=== PATIENT | female | born 1960 | race African-American/Black ===

== ENCOUNTER 2018-12-05 15:51 | Emergency (ER) | payer MEDICARE, MEDICAID ==
[2018-12-05] MEDS ORDERED: HYDROcodone/Acetaminophen 5/325 mg Tablet ONE (17:51)
== END 2018-12-05 17:58 | disposition home or self-care (01) ==
LOC: ERS 15:51
DX: G89.29 Other chronic pain (principal); M54.5 Low back pain; E78.5 Hyperlipidemia, unspecified; I10 Essential (primary) hypertension; J44.9 Chronic obstructive pulmonary disease, unspecified; F31.9 Bipolar disorder, unspecified; F20.9 Schizophrenia, unspecified; F17.210 Nicotine dependence, cigarettes, uncomplicated; Z79.899 Other long term (current) drug therapy
CPT/HCPCS: 99281

== ENCOUNTER 2019-04-12 11:25 | Emergency (ER) | payer MEDICARE, MEDICAID ==
[2019-04-12 12:08] LABS: #Basophils 0.1 thou/uL (0.0-0.2); #Eosinphils 0.2 thou/uL (0.0-0.7); #Lymphocytes 1.3 thou/uL (1.20-3.40); #Monocytes 0.4 thou/uL (0.11-0.59); #Neutrophils 3.3 thou/uL (1.40-6.50); %Eosinophils 4.1 % (0.0-10.0); %Lymphocytes 24.1 % (21.0-51.0); %Neutrophils 62.8 % (42.0-75.0); Hemoglobin 13.1 g/dL (12.0-16.0); Mean Corpuscular HGB CONC 33.7 g/dL (32.0-36.0); Mean Corpuscular Hemoglobin 28.1 pg (27.0-31.0); Mean Corpuscular Volume 83.3 fL (78.0-98.0); Mean Platelet Volume 9.7 fL (7.4-10.4); Platelet Count 251 thou/uL (130-400); RBC Distribution Width 14.2 % (11.5-14.5); Red Blood Cell (RBC) Count 4.68 mill/uL (4.20-5.40); White Blood Cell (WBC) Count 5.3 thou/uL (4.8-10.8)
--- NOTE | 2019-04-12 12:11 | RAD ---
Chest AP view INDICATION: Chest pain and shortness of breath COMPARISON: None FINDINGS: Lungs:The lungs are clear Cardiac silhouette:The cardiomediastinal silhouette appears within normal limits. Pulmonary vasculature:Normal Pleural spaces:No pleural effusion or pneumothorax is demonstrated. Upper abdomen:No abnormality seen. Osseous structures: No acute osseous abnormality. Additional findings:None. IMPRESSION: No acute cardiopulmonary abnormality.
[2019-04-12 12:35] LABS: ALT (SGPT) 216 U/L (8-55); AST (SGOT) 63 U/L (5-34); Albumin 4.4 g/dL (3.5-5.0); Alkaline Phosphatase 343 U/L (40-110); Anion Gap 12 mmol/L (10-20); BUN (Urea Nitrogen) 13 mg/dL (9.8-20.1); Bilirubin, Total 0.4 mg/dL (0.2-1.2); Calc. Creatinine Clearance 0 mL/min (70-130); Calcium 9.6 mg/dL (7.8-10.44); Carbon Dioxide 29 mmol/L (22-29); Chloride 102 mmol/L (98-107); Estimated GFR-MDRD 81; Globulin 3.4 g/dL (2.4-3.5); Glucose 97 mg/dL (70-105); Lipase 88 U/L (8-78); Potassium 4.1 mmol/L (3.5-5.1); Protein, Total 7.8 g/dL (6.0-8.3); Sodium 139 mmol/L (136-145)
[2019-04-12] MEDS ORDERED: Dexamethasone 10 MG/ML VIAL ONE (13:09)
== END 2019-04-12 13:24 | disposition home or self-care (01) ==
LOC: ERS 11:25
DX: R07.89 Other chest pain (principal); R05 Cough; E78.5 Hyperlipidemia, unspecified; E78.00 Pure hypercholesterolemia, unspecified; I10 Essential (primary) hypertension; J44.9 Chronic obstructive pulmonary disease, unspecified; F31.9 Bipolar disorder, unspecified; F20.9 Schizophrenia, unspecified; F17.210 Nicotine dependence, cigarettes, uncomplicated; Z79.899 Other long term (current) drug therapy
CPT/HCPCS: 71045; 80053; 83690; 84484; 85025; 85379; 87804; 93005; 96374; J1100

== ENCOUNTER 2021-03-25 14:48 | Outpatient (CLI) | payer MEDICARE, MEDICAID ==
[2021-03-25 16:15] LABS: Hemoglobin 12.4 g/dL (12.0-15.5); Mean Corpuscular HGB CONC 31.7 g/dL (32.0-36.0); Mean Corpuscular Hemoglobin 27.1 pg (27.0-33.0); Mean Corpuscular Volume 85.4 fl (81.6-98.3); Mean Platelet Volume 11.4 fl (7.4-10.4); Platelet Count 382 10x3/uL (150-450); RBC Distribution Width 15.8 % (11.5-14.5); Red Blood Cell (RBC) Count 4.58 10x6/uL (3.90-5.03); White Blood Cell (WBC) Count 5.9 10x3/uL (3.5-10.5)
[2021-03-25 17:37] LABS: Anion Gap 12 mmol/L (10-20); BUN (Urea Nitrogen) 18 mg/dL (9.8-20.1); Calc. Creatinine Clearance 0 mL/min (70-130); Calcium 8.9 mg/dL (7.8-10.44); Carbon Dioxide 25 mmol/L (23-31); Chloride 108 mmol/L (98-107); Glucose 64 mg/dL (80-115); Potassium 4.2 mmol/L (3.5-5.1); Sodium 141 mmol/L (136-145)
[2021-03-26 21:08] LABS: SARS-CoV-2 PCR by NAA Not Detected (NotDetected)
== END 2021-03-25 14:49 | disposition home or self-care (01) ==
LOC: LABBT 14:48
PROVIDERS: ATTEND Neurological Surgery
DX: Z01.818 Encounter for other preprocedural examination (principal); M48.062 Spinal stenosis, lumbar region with neurogenic claudication; Z20.822 Contact with and (suspected) exposure to COVID-19
CPT/HCPCS: 80048; 85027; 93005; U0003; U0005; 93010

== ENCOUNTER 2021-03-30 07:57 | Inpatient (IN) | payer MEDICARE, MEDICAID ==
[2021-03-24 10:06] VITALS: BMI 27.4
[2021-03-30] MEDS ORDERED: ceFAZolin Sodium (SDC) 2 GM/100 ML BAG ONE (09:29)
[2021-03-30] MEDS ORDERED: Fentanyl 100 MCG/2 ML VIAL ONE ×2 (09:40→14:41)
[2021-03-30] MEDS ORDERED: Fentanyl 250 MCG/5 ML VIAL ONE (11:10)
[2021-03-30] MEDS ORDERED: Neomycin-Polymyxin 1 ML AMP ONE (11:39)
[2021-03-30] MEDS ORDERED: Glycopyrrolate 0.2 MG/ML 5 ML SYRINGE ONE (12:15)
[2021-03-30] MEDS ORDERED: PHENYLEPHRINE-NS 100 MCG/ML 10 ML SYRINGE ONE (12:15)
[2021-03-30] MEDS ORDERED: Lidocaine 1% PF 5 ML VIAL ONE (12:15)
[2021-03-30] MEDS ORDERED: Rocuronium Bromide 10 MG/ML (10ML VIAL) ONE (12:15)
[2021-03-30] MEDS ORDERED: PROPOFOL 200 MG/20 ML VIAL ONE (12:15)
[2021-03-30] MEDS ORDERED: ePHEDrine 50 MG/ML VIAL ONE (12:15)
[2021-03-30] MEDS ORDERED: Dexamethasone 20 MG/5 ML VIAL ONE (12:15)
[2021-03-30] MEDS ORDERED: HYDROmorphone 0.5 MG/0.5 ML SYRINGE ONE ×2 (14:07→14:29)
[2021-03-30] MEDS ORDERED: Ketorolac Tromethamine 30 MG/ML VIAL ONE (14:07)
[2021-03-30] MEDS ORDERED: Ondansetron HCl/PF 4 MG/2 ML Vial IVP PRN (14:08)
[2021-03-30] MEDS ORDERED: Promethazine HCl 25 MG/ML VIAL IVPB PRN (14:08)
[2021-03-30] MEDS ORDERED: Promethazine HCl 25 MG/ML VIAL IM PRN ×2 (14:08→16:45)
[2021-03-30] MEDS ORDERED: Ketorolac Tromethamine 30 MG/ML VIAL IVP PRN (14:08)
[2021-03-30] MEDS ORDERED: HYDROmorphone 2 MG/ML VIAL SLOW IVP PRN (14:08)
[2021-03-30] MEDS ORDERED: Albuterol Sulfate 1.25 MG/3 ML NEB ONE (15:18)
[2021-03-30] MEDS ORDERED: diphenhydrAMINE 50 MG/ML VIAL IVP PRN (16:45)
[2021-03-30] MEDS ORDERED: Milk Of Magnesia 30 ML UDCUP PO PRN (16:45)
[2021-03-30] MEDS ORDERED: Mag-Al 1200 mg/1200 mg/30 ML UDCUP PO PRN (16:45)
[2021-03-30] MEDS ORDERED: diphenhydrAMINE 25 MG CAP PO PRN (16:45)
[2021-03-30] MEDS ORDERED: Morphine 2 MG/ML VIAL SLOW IVP PRN (16:45)
[2021-03-30] MEDS ORDERED: Ondansetron PF 4 MG/2 ML Vial IM PRN (16:45)
[2021-03-30] MEDS ORDERED: Acetaminophen/Codeine 30-300mg Tablet PO PRN (16:45)
[2021-03-30] MEDS ORDERED: Promethazine 25 MG TAB PO PRN (16:45)
[2021-03-30] MEDS ORDERED: Promethazine HCl 12.5 MG SUPP PR PRN (16:45)
[2021-03-30] MEDS ORDERED: traMADol HCl 50 MG TAB PO PRN ×2 (16:45)
[2021-03-30] MEDS ORDERED: tiZANidine HCl 4 MG TAB PO PRN (16:45)
[2021-03-30] MEDS ORDERED: Albuterol Sulfate 2.5 mg/3 ml Neb NEB PRN (17:07)
[2021-03-30] MEDS ORDERED: hydrOXYzine 25 MG TAB PO PRN (17:16)
[2021-03-30] MEDS ORDERED: cloNIDine 0.1 MG TAB PO PRN (17:22)
[2021-03-30] MEDS: CEFAZOLIN 2 GM, Admixture Fee 1 EACH in Sodium Chloride 0.9% 100 ML IVPB SCH (18:36)
[2021-03-30] MEDS: Sodium Chloride 0.9% 1,000 ML IV SCH (18:36)
[2021-03-30] MEDS: Gabapentin 300 MG CAP PO SCH (19:38)
[2021-03-30] MEDS: Aripiprazole 10 MG TAB PO SCH (19:38)
[2021-03-30] MEDS: Morphine 4 MG/ML VIAL SLOW IVP PRN (19:44)
[2021-03-31] MEDS: Loratadine 10 MG TAB PO PRN (00:24)
[2021-03-31] MEDS: Morphine 4 MG/ML VIAL SLOW IVP PRN ×2 (00:24→04:42)
[2021-03-31] MEDS: CEFAZOLIN 2 GM, Admixture Fee 1 EACH in Sodium Chloride 0.9% 100 ML IVPB SCH ×3 (00:24→18:14)
[2021-03-31] MEDS: Sodium Chloride 0.9% 1,000 ML IV SCH ×2 (06:21→21:14)
[2021-03-31] MEDS ORDERED: hydrALAZINE 20 MG/ML VIAL SLOW IVP PRN (06:49)
[2021-03-31] MEDS: Mometasone 200 MCG/Formoterol 5 MCG 120 PUFF INHALER INH SCH (07:01)
[2021-03-31] MEDS: Bupropion 100 MG SR TAB PO SCH (08:20)
[2021-03-31] MEDS: Gabapentin 300 MG CAP PO SCH ×4 (08:21→21:16)
[2021-03-31] MEDS: Lisinopril 20 MG TAB PO SCH (08:22)
[2021-03-31] MEDS: Fluticasone Propionate Nasal Spray 16 gm Bottle NASAL PRN ×2 (08:23→15:23)
[2021-03-31] MEDS: Multivit, Therapeutic 1 TAB PO SCH (08:23)
[2021-03-31] MEDS: Acetaminophen/Codeine 30-300mg Tablet PO PRN ×2 (10:34→15:30)
[2021-03-31] MEDS: Aripiprazole 10 MG TAB PO SCH (21:16)
[2021-04-01] MEDS: CEFAZOLIN 2 GM, Admixture Fee 1 EACH in Sodium Chloride 0.9% 100 ML IVPB SCH (00:21)
[2021-04-01] MEDS: Loratadine 10 MG TAB PO PRN (01:05)
[2021-04-01] MEDS: Acetaminophen/Codeine 30-300mg Tablet PO PRN ×2 (05:55→19:53)
[2021-04-01] MEDS ORDERED: Polyethylene Glycol 3350 17 GM Packet PO PRN (07:19)
[2021-04-01] MEDS: Mometasone 200 MCG/Formoterol 5 MCG 120 PUFF INHALER INH SCH (08:35)
[2021-04-01] MEDS: Gabapentin 300 MG CAP PO SCH ×4 (08:46→19:54)
[2021-04-01] MEDS: Docusate 100 MG CAP PO SCH (08:46)
[2021-04-01] MEDS: Multivit, Therapeutic 1 TAB PO SCH (08:47)
[2021-04-01] MEDS: Lisinopril 20 MG TAB PO SCH (08:48)
[2021-04-01] MEDS: Cephalexin 250 MG CAP PO SCH ×4 (08:49→19:53)
[2021-04-01] MEDS: Bupropion 100 MG SR TAB PO SCH (08:50)
[2021-04-01] MEDS: Fluticasone Propionate Nasal Spray 16 gm Bottle NASAL PRN (08:55)
[2021-04-01] MEDS: Sodium Chloride 0.9% 1,000 ML IV SCH ×2 (14:08→23:34)
[2021-04-01] MEDS: Aripiprazole 10 MG TAB PO SCH (19:54)
[2021-04-02] MEDS: Acetaminophen/Codeine 30-300mg Tablet PO PRN (03:12)
[2021-04-02] MEDS: Mometasone 200 MCG/Formoterol 5 MCG 120 PUFF INHALER INH SCH (07:31)
[2021-04-02 08:06] VITALS: TEMP 98.4
[2021-04-02] MEDS: Cephalexin 250 MG CAP PO SCH (08:18)
[2021-04-02] MEDS: Lisinopril 20 MG TAB PO SCH (08:18)
[2021-04-02] MEDS: Docusate 100 MG CAP PO SCH (08:18)
[2021-04-02] MEDS: Multivit, Therapeutic 1 TAB PO SCH (08:18)
[2021-04-02] MEDS: Fluticasone Propionate Nasal Spray 16 gm Bottle NASAL PRN (08:18)
[2021-04-02] MEDS: Gabapentin 300 MG CAP PO SCH (08:19)
[2021-04-02] MEDS: Bupropion 100 MG SR TAB PO SCH (08:19)
[2021-04-02 08:20] VITALS: BP 189/77
== END 2021-04-02 11:11 | disposition home or self-care (01) | DRG 460 ==
LOC: SDC 07:57 → ONC 14:15 → MSONC 03-31 11:07 → OBSVTOIN 03-31 15:52
PROVIDERS: ADMIT Neurological Surgery; ATTEND Neurological Surgery
PROC: 0SG1071 Fusion of 2 or more Lumbar Vertebral Joints with Autologous Tissue Substitute, Posterior Approach, Posterior Column, Open Approach (ICD-10-PCS; principal; 2021-03-30)
PROC: 01NB0ZZ Release Lumbar Nerve, Open Approach (ICD-10-PCS; 2021-03-30)
PROC: 0SP00JZ Removal of Synthetic Substitute from Lumbar Vertebral Joint, Open Approach (ICD-10-PCS; 2021-03-30)
DX: M48.062 Spinal stenosis, lumbar region with neurogenic claudication (principal); Z20.822 Contact with and (suspected) exposure to COVID-19; I10 Essential (primary) hypertension; E78.5 Hyperlipidemia, unspecified; J44.9 Chronic obstructive pulmonary disease, unspecified; D64.9 Anemia, unspecified; G89.4 Chronic pain syndrome; F17.210 Nicotine dependence, cigarettes, uncomplicated; F41.9 Anxiety disorder, unspecified; F31.9 Bipolar disorder, unspecified; K59.00 Constipation, unspecified; Z88.1 Allergy status to other antibiotic agents; Z90.710 Acquired absence of both cervix and uterus; Z90.49 Acquired absence of other specified parts of digestive tract; Z98.51 Tubal ligation status
CPT/HCPCS: 76000; 96365; 96375; 96376; C1713; G0378; J0360; J0690; J1100; J1170; J1885; J2270; J2704; J3010; J3370; J3490; J7050

== ENCOUNTER 2021-09-25 14:30 | Inpatient (IN) | payer MEDICARE, MEDICAID ==
[2021-09-29 16:11] VITALS: BMI 25.9
[2021-09-30] MEDS ORDERED: fentaNYL Citrate/PF 100 MCG/2 ML SYRINGE ONE (06:38)
[2021-09-30] MEDS ORDERED: CEFAZOLIN 2 GM VIAL ONE (07:41)
[2021-09-30] MEDS ORDERED: Sodium Chloride 0.9% 100 ML ONE (07:41)
[2021-09-30] MEDS ORDERED: Ondansetron PF 4 MG/2 ML Vial ONE (08:06)
[2021-09-30] MEDS ORDERED: Rocuronium Bromide 10 MG/ML (10ML VIAL) ONE (08:06)
[2021-09-30] MEDS ORDERED: PHENYLEPHRINE-NS 100 MCG/ML 10 ML SYRINGE ONE (08:06)
[2021-09-30] MEDS ORDERED: Lidocaine 1% PF 5 ML VIAL ONE (08:06)
[2021-09-30] MEDS ORDERED: Glycopyrrolate 0.2 MG/ML 5 ML SYRINGE ONE (08:06)
[2021-09-30] MEDS ORDERED: Dexamethasone 20 MG/5 ML VIAL ONE (08:06)
[2021-09-30] MEDS ORDERED: PROPOFOL 200 MG/20 ML VIAL ONE (08:06)
[2021-09-30] MEDS ORDERED: Fentanyl 100 MCG/2 ML VIAL ONE ×2 (09:48→10:08)
[2021-09-30] MEDS ORDERED: diphenhydrAMINE 50 MG/ML VIAL IVP PRN (10:00)
[2021-09-30] MEDS ORDERED: Ondansetron PF 4 MG/2 ML Vial IVP PRN (10:00)
[2021-09-30] MEDS ORDERED: traMADol HCl 50 MG TAB PO PRN ×2 (10:00)
[2021-09-30] MEDS ORDERED: Morphine 4 MG/ML VIAL SLOW IVP PRN (10:00)
[2021-09-30] MEDS ORDERED: Promethazine HCl 25 MG/ML VIAL IM PRN (10:00)
[2021-09-30] MEDS ORDERED: Promethazine 25 MG TAB PO PRN (10:00)
[2021-09-30] MEDS ORDERED: Morphine 2 MG/ML VIAL SLOW IVP PRN (10:00)
[2021-09-30] MEDS ORDERED: Promethazine HCl 12.5 MG SUPP PR PRN (10:00)
[2021-09-30] MEDS ORDERED: Mag-Al 1200 mg/1200 mg/30 ML UDCUP PO PRN (10:00)
[2021-09-30] MEDS ORDERED: Milk Of Magnesia 30 ML UDCUP PO PRN (10:00)
[2021-09-30] MEDS ORDERED: Cyclobenzaprine 10 MG TAB PO PRN (10:00)
[2021-09-30] MEDS ORDERED: diphenhydrAMINE 25 MG CAP PO PRN (10:00)
[2021-09-30] MEDS ORDERED: HYDROcodone/Acetaminophen 10/325 mg Tablet PO PRN (10:00)
[2021-09-30] MEDS ORDERED: Cyclobenzaprine 10 MG TAB ONE (10:13)
[2021-09-30] MEDS: HYDROcodone/Acetaminophen 10/325 mg Tablet PO PRN ×2 (12:03→17:38)
[2021-09-30] MEDS: Sodium Chloride 0.9% 1,000 ML IV SCH (12:06)
[2021-09-30] MEDS: CEFAZOLIN 2 GM in Sodium Chloride 0.9% 100 ML IVPB SCH ×2 (15:16→21:04)
[2021-10-01] MEDS: HYDROcodone/Acetaminophen 10/325 mg Tablet PO PRN ×2 (02:11→13:09)
[2021-10-01] MEDS: Sodium Chloride 0.9% 1,000 ML IV SCH ×3 (02:50→19:00)
[2021-10-01] MEDS: CEFAZOLIN 2 GM in Sodium Chloride 0.9% 100 ML IVPB SCH (05:44)
[2021-10-01] MEDS ORDERED: Chloraseptic Spray 180 ml Bottle PO PRN (08:20)
[2021-10-01] MEDS: Benzonatate 100 MG CAP PO PRN ×2 (08:42→17:58)
[2021-10-01] MEDS: Dexamethasone 4 mg/ml Vial SLOW IVP SCH ×2 (09:36→17:08)
[2021-10-01] MEDS: Gabapentin 300 MG CAP PO SCH ×2 (14:51→20:39)
[2021-10-01] MEDS: buPROPion HCl 100 MG TAB PO SCH (20:39)
[2021-10-02] MEDS: Dexamethasone 4 mg/ml Vial SLOW IVP SCH ×2 (01:56→08:55)
[2021-10-02] MEDS: HYDROcodone/Acetaminophen 10/325 mg Tablet PO PRN (05:19)
[2021-10-02] MEDS: Gabapentin 300 MG CAP PO SCH (08:51)
[2021-10-02] MEDS: buPROPion HCl 100 MG TAB PO SCH (08:52)
[2021-10-02 08:53] VITALS: BP 159/82; TEMP 98
[2021-10-02] MEDS ORDERED: Aripiprazole 10 MG TAB PO SCH (09:00)
[2021-10-02] MEDS ORDERED: Lisinopril 20 MG TAB PO SCH (09:00)
[2021-10-02] MEDS ORDERED: Amlodipine 5 MG TAB PO SCH (09:00)
== END 2021-10-02 10:16 | disposition home or self-care (01) | DRG 473 ==
LOC: SURG A 09-30 05:37 → INTOOBSV 09-30 05:37 → MSONC 09-30 11:15 → OBSVTOIN 10-01 09:08
PROVIDERS: ADMIT Neurological Surgery; ATTEND Neurological Surgery
PROC: 0RG20A0 Fusion of 2 or more Cervical Vertebral Joints with Interbody Fusion Device, Anterior Approach, Anterior Column, Open Approach (ICD-10-PCS; principal; 2021-09-30)
PROC: 0RB30ZZ Excision of Cervical Vertebral Disc, Open Approach (ICD-10-PCS; 2021-09-30)
PROC: 0PP304Z Removal of Internal Fixation Device from Cervical Vertebra, Open Approach (ICD-10-PCS; 2021-09-30)
DX: M48.02 Spinal stenosis, cervical region (principal); M54.12 Radiculopathy, cervical region; M43.12 Spondylolisthesis, cervical region; Z20.822 Contact with and (suspected) exposure to COVID-19; R13.10 Dysphagia, unspecified; R49.0 Dysphonia; Z90.49 Acquired absence of other specified parts of digestive tract
CPT/HCPCS: 76000; 96365; 96375; C1713; C1776; G0378; J1100; J2270; J2405; J2704; J3010; J3490; J7050

== ENCOUNTER 2021-09-25 14:44 | Outpatient (CLI) | payer MEDICARE, MEDICAID ==
[2021-09-25 15:38] LABS: Hemoglobin 10.5 g/dL (12.0-15.5); Mean Corpuscular HGB CONC 32.6 g/dL (32.0-36.0); Mean Corpuscular Hemoglobin 26.4 pg (27.0-33.0); Mean Corpuscular Volume 81.1 fl (81.6-98.3); Mean Platelet Volume 10.8 fl (7.4-10.4); Platelet Count 291 10x3/uL (150-450); RBC Distribution Width 16.4 % (11.5-14.5); Red Blood Cell (RBC) Count 3.97 10x6/uL (3.90-5.03)
[2021-09-25 15:58] LABS: Anion Gap 17 mmol/L (10-20); BUN (Urea Nitrogen) 13 mg/dL (9.8-20.1); Calc. Creatinine Clearance 0 mL/min (70-130); Calcium 9.2 mg/dL (7.8-10.44); Carbon Dioxide 24 mmol/L (23-31); Chloride 105 mmol/L (98-107); Glucose 159 mg/dL (80-115); Potassium 3.7 mmol/L (3.5-5.1); Sodium 142 mmol/L (136-145)
[2021-09-26 02:04] LABS: SARS-CoV-2 PCR by NAA Not Detected (NotDetected)
== END 2021-09-25 14:45 | disposition home or self-care (01) ==
LOC: LABBT 14:44
PROVIDERS: ATTEND Neurological Surgery
DX: Z01.818 Encounter for other preprocedural examination (principal); M54.12 Radiculopathy, cervical region; Z20.822 Contact with and (suspected) exposure to COVID-19
CPT/HCPCS: 80048; 85027; 93005; U0003; U0005; 93010

== ENCOUNTER 2021-11-12 09:40 | Outpatient (CLI) | payer MEDICARE, MEDICAID | END 2021-11-12 09:41 | disposition home or self-care (01) | LOC: TBSIIMAG 09:40 | PROVIDERS: ATTEND Neurological Surgery | DX: M47.22 Other spondylosis with radiculopathy, cervical region (principal); Z98.890 Other specified postprocedural states | CPT/HCPCS: 72040 ==

== ENCOUNTER 2022-02-16 13:37 | Outpatient (CLI) | payer OTHER | END 2022-02-16 13:38 | disposition home or self-care (01) | LOC: TBSIIMAG 13:37 | PROVIDERS: ATTEND Neurological Surgery | DX: M47.22 Other spondylosis with radiculopathy, cervical region (principal); Z98.1 Arthrodesis status | CPT/HCPCS: 72040 ==